=== PATIENT | female | born 1960 | race Caucasian/White ===

== ENCOUNTER 2022-12-14 06:12 | Inpatient (IN) ==
--- NOTE | 2022-11-30 14:06 | Anesthesiology Consultation ---
Date of Service November 30, 2022 Assessment & Plan (1) Encounter for pre-operative examination: Chart Review Chart Review: Acceptable Risk for Surgery and Patient NOT seen in Pre Admission Testing -Will leave to anesthesiologist discretion DOS if PRP needed DOS (not done preoperatively) -COVID screening: Per PAT nursing assessment on 11/10/22. No known COVID-19 positive contacts or current COVID-19 related symptoms. Travel screen negative. Patient vaccinated for Covid. At surgeon discretion if preop Covid testing being done. History Surgery Operation Date: 12/14/22 07:45 Proposed Procedures p L4-S1 Decompression and Fusion, Spinal Cord Monitoring - Fidel Small, Height/Weight Height: 5 ft 1 in Weight: 89.358 kg Allergies Allergy/AdvReac Type Severity Reaction Status Date / Time chlorhexidine Allergy Intermediate BLISTERS Verified 11/10/22 15:25 Medications Home Medications Medication Instructions Recorded Confirmed Last Taken Multivitamin Pack 1 dose PO QAM 11/10/22 11/10/22 Unknown ascorbic acid (vitamin C) 500 mg 500 mg PO DAILY 11/10/22 11/10/22 Unknown tablet (Vitamin C) trazodone 50 mg tablet 50 mg PO HS PRN Sleep 11/10/22 11/10/22 Unknown Past Medical History Medical History Degenerative disc disease History of COVID-19 04/2022>RESOLVED History of kidney stones NO SURGERY REQUIRED Hx of diverticulitis of colon Spinal stenosis Past Family History Family History Other No family history of adverse response to anesthesia Past Surgical History Surgical History History of bowel resection LOW ANTERIOR D/T DIVERTICULITIS History of cholecystectomy History of colonoscopy History of open reduction and internal fixation (ORIF) procedure RT WRIST History of partial hysterectomy Post-operative nausea and vomiting [place] teeth removed Social History Smoking Status: Never smoker Hx Alcohol Use: Yes alcohol intake frequency: holidays/special occasions only substance use type: does not use Testing Laboratory Results 11/18/22= WBC: 5.8 H/H: 13.9/43.1 PLATELETS: 235 PT: 9.6 PTT: 29 INR: 0.96 UA: Negative URINE CULTURE: No growth Electrocardiogram Date: 11/18/22 Findings: + NSR @ (79bpm ) Normal EKG per confirming provider Chest X-Ray Date: 11/18/22 Findings: + NAD
[~2022-12-14 06:12] MED LIST: ACETAMINOPHEN 500 MG TAB PO SCH; CeleBREX 200 MG CAP PO SCH; GABAPENTIN 600 MG DOSE PO SCH; LR 15ML/HR IV SCH; ceFAZolin 2000MG 2,000 MG/15 ML SYR IV SCH
[2022-12-14] MEDS ORDERED: HYDROmorphone INJ 2 MG/ML SYR/VIAL ONE (06:40)
[2022-12-14] MEDS ORDERED: MIDAZOLAM HCL 1 MG/ML 2ML VIAL ONE (06:40)
[2022-12-14 07:22] LABS: BUN Creatinine Ratio 18.2 (10-20); Creatinine Clr Calc Pharmacy 78.1 ml/min; Est GFR (African American) 96.6 ml/min; Est GFR (Non-African American) 83.3 ml/min; Potassium 3.5 mmol/L (3.5-5.1)
[2022-12-14] MEDS ORDERED: BUPIVACAINE/EPINEPHRINE 0.25% 1:200,000 30 ML VIAL ONE (07:37)
[2022-12-14] MEDS ORDERED: ceFAZolin 330 MG/ML 1 GM VIAL ONE (07:37)
--- NOTE | 2022-12-14 07:38 | History & Physical Bridge Note ---
Date of Service December 14, 2022 History & Physical Bridge Note I have examined the patient, reviewed the History & Physical and in the interval since the performance of the History & Physical I have noted the following changes of clinical significance: no changes noted
--- NOTE | 2022-12-14 07:39 | History & Physical Report ---
Date of Service December 14, 2022 Assessment & Plan (1) Neurogenic claudication due to lumbar spinal stenosis: Plan: L4-S1 decompression and fusion History of Present Illness Chief Complaint: Back and leg pain Primary Care Provider: Luis Bermeo DO This is a 62-year-old female who presents for persistent back and leg pain after failing conservative course of nonoperative care is here for surgical invention. Allergies Allergy/AdvReac Type Severity Reaction Status Date / Time chlorhexidine Allergy Intermediate BLISTERS Verified 12/14/22 06:40 morphine AdvReac Intermediate Vomiting Verified 12/14/22 06:40 Home Medications Medication Instructions Recorded Confirmed Type Multivitamin Pack 1 dose PO QAM 11/10/22 12/14/22 History ascorbic acid (vitamin C) 500 mg 500 mg PO DAILY 11/10/22 12/14/22 History tablet (Vitamin C) trazodone 50 mg tablet 50 mg PO HS PRN Sleep 11/10/22 12/14/22 History Past Med/Surg History Medical History Degenerative disc disease History of COVID-19 04/2022>RESOLVED History of kidney stones NO SURGERY REQUIRED Hx of diverticulitis of colon Spinal stenosis Surgical History History of bowel resection LOW ANTERIOR D/T DIVERTICULITIS History of cholecystectomy History of colonoscopy History of open reduction and internal fixation (ORIF) procedure RT WRIST History of partial hysterectomy Post-operative nausea and vomiting [place] teeth removed Family History Other No family history of adverse response to anesthesia Social History Smoking Status: Never smoker Second Hand Exposure: Yes ( A CHILD); Hx Alcohol Use: Yes Preferred Language: Kenyan Acid Adjuster Required: No Beliefs That Will Affect Care: None Current Living Situation: Spouse Feels Safe at Home: Yes Safety Concerns: Feels Safe At This Time Assistive Devices: Contacts and Glasses Physical Exam Physical Exam: Patient is alert and oriented Heart regular rhythm Lungs clear Results & Data Results & Data ([facility]) Vital Signs (Past 12 Hours) Vital Signs Temp Pulse Resp BP Pulse Ox O2 Del Method 12/14/22 06:35 36.6 C 74 20 142/78 H 98 Room Air
[2022-12-14] MEDS ORDERED: PROMETHAZINE HCL 6.25 MG in SODIUM CHLORIDE 0.9% 50 ML IV PRN (07:46)
[2022-12-14] MEDS ORDERED: ePHEDrine sulfate 50 MG/ML AMP IV PRN (07:46)
[2022-12-14] MEDS ORDERED: ATROPINE SULFATE 0.1 MG/ML 10ML SYR IV PRN (07:46)
[2022-12-14] MEDS ORDERED: ONDANSETRON INJ 2 MG/ML 2 ML VIAL IV PRN ×2 (07:46→11:54)
[2022-12-14] MEDS ORDERED: HYDROmorphone INJ 2 MG/ML SYR/VIAL IV PRN (07:46)
[2022-12-14] MEDS ORDERED: PROPOFOL IV EMULSION 10 MG/ML 20 ML VIAL IV ONE (08:15)
[2022-12-14] MEDS ORDERED: ROCURONIUM BROMIDE 10 MG/ML 5 ML VIAL IV ONE (08:15)
[2022-12-14] MEDS ORDERED: ONDANSETRON INJ 2 MG/ML 2 ML VIAL ONE (08:15)
[2022-12-14] MEDS ORDERED: DEXAMETHASONE SOD INJ 4 MG/ML VIAL ONE (08:15)
[2022-12-14] MEDS ORDERED: LIDOCAINE 2% MPF LOCAL 5 ML VIAL INFIL ONE (08:15)
[2022-12-14] MEDS ORDERED: GLYCOPYRROLATE 0.2 MG/ML VIAL ONE (08:15)
[2022-12-14] MEDS ORDERED: NEOSTIGMINE METHYLSULFATE 1 MG/ML 10ML VIAL ONE (08:15)
[2022-12-14] MEDS ORDERED: ePHEDrine sulfate 50 MG/ML SYR ONE (08:36)
[2022-12-14] MEDS ORDERED: FLOSEAL HEMOSTATIC MATRIX 10ML TOP ONE (09:38)
--- NOTE | 2022-12-14 09:48 | Operative Report ---
Post Operative Report Pre & Post Diagnosis Operation Date: 12/14/22 07:45 Pre-Op Diagnosis: Lumbar Spinal Stenosis with Neurogenic Claudication L4-S1 Spondylolisthesis L4-L5 Post-Op Diagnosis: Same I identified the patient and participated in the time-out.: Yes Procedure Operation Date: 12/14/22 07:45 Actual Procedures #1 lumbar decompression bilaterally facetectomies and foraminotomies L3-L4, L4- L5 and L5-S1. #2 posterior spinal fusion L4-L5 L5-S1. #3 placement posterior instrumentation L4-L5 L5-S1. #4 interbody fusion L4-L5 L5-S1. #5 placement of Spira 14 x 26 mm at L4-5 and 12 x 26 mm at L5-S1. #6 placement locally harvested morselized autograft in the posterior gutters. #7 placement of I factor model V toss in the interbody space and posterior lateral gutters. Surgeon Fidel Small, DO [employer] Buffer Remy Anderson Estimated Blood Loss 200 Findings See Below Patient is 5 foot 1 weighing over 89 kg with a BMI in excess of 37. Patient's body habitus did contribute to significant technical difficulty required deepest retractors and longer instruments in order to perform her procedure. This at least 50% increased operative time. Specimens None Indications This is a 62-year-old female who presents above-mentioned diagnosis after failing course of nonoperative care she is here for surgical invention. Description of Procedure Patient was met with identified informed consent obtained. Patient was then taken to the operative suite underwent a patient placed in the prone position on a Alli table top Leon frame. All bony prominences well-padded eyes inspected to ensure no external pressure placed upon the. This point the lumbar spine was prepped and draped in the normal sterile fashion. Sharp dissection with the assistance of Bovie Cardizem down to and exposing the lamina and transverse processes of L4-L5 and sacral ala bilaterally. From a caudal to cephalad fashion complete laminectomy of L5 L4 partial laminectomy of the 3 was performed including bilateral medial facetectomies and foraminotomies addressing severe spinal stenosis. Pedicle screws were then placed in L4-L5 and S1 levels bilaterally with assistance of fluoroscopy and appropriately sized sam placed. By way of a transforaminal approach on the left P discectomy of L5-S1 was performed endplates curetted to subcortically bone and a 12 x 26 mm spiral cage filled with I factor tapped in position. Then proceeded to L4-L5 and again by way of a transforaminal approach on the left complete discectomy performed endplates curetted to subcortically bone and a 14 x 26 mm spiral cage L5 position. Rods then locked in final position bilaterally. The transverse processes of L4-L5 and sacral ala burred to subcortical bleeding bone. I factor amount of detox and locally harvested morselized autograft was placed in the posterior gutters. 15 round SUKH drain inserted. The incision was then closed with 1 Vicryl the fascia 2-0 Vicryl subcutaneously and 4 Monocryl for final skin closure. Steri-Strips dressings placed. Patient waken taken to PACU stable condition. Please note spinal cord monitoring visualized at the procedure no changes noted. Lastly Remy Anderson was present at the entire surgery involved the patient positioning complex portion of the surgery and final skin closure. I attest to the content of the Intraoperative Record and any orders documented therein. Any exceptions are noted below.
[2022-12-14] MEDS: fentaNYL citrate 100 MCG/2 ML VIAL IV PRN ×2 (10:29→10:46)
[2022-12-14] MEDS: LACTATED RINGER'S 1,000 ML IV SCH ×2 (11:45→19:31)
[2022-12-14] MEDS ORDERED: NALOXONE HCL 0.4 MG/1 ML VIAL/CARP IV PRN (11:54)
[2022-12-14] MEDS ORDERED: ACETAMINOPHEN 1,000 MG/100 ML VIAL IV PRN (11:54)
[2022-12-14] MEDS ORDERED: HYDROmorphone INJ 1 MG/ML SYRINGE IV PRN (11:54)
[2022-12-14] MEDS ORDERED: ALUMINUM/MAGNESIUM SUSP 30 ML UDC PO PRN (11:54)
[2022-12-14] MEDS ORDERED: SOD PHOSPHATE/SOD BIPHOSPHATE ENEMA 132 ML BTL PR PRN (11:54)
[2022-12-14] MEDS ORDERED: traZODone HCL 50 MG TAB PO PRN (11:54)
[2022-12-14] MEDS ORDERED: diphenhydrAMINE Capsule 25 MG CAP PO PRN (11:54)
[2022-12-14] MEDS ORDERED: PROMETHAZINE HCL 12.5 MG in SODIUM CHLORIDE 0.9% 50 ML IV PRN (11:54)
[2022-12-14] MEDS ORDERED: ONDANSETRON 4 MG OD TAB PO PRN (11:54)
[2022-12-14] MEDS ORDERED: ACETAMINOPHEN 500 MG TAB PO PRN (11:54)
[2022-12-14] MEDS ORDERED: HYDROmorphone INJ 0.5 MG/0.5 ML SYR IV PRN (11:54)
[2022-12-14] MEDS ORDERED: traMADol HCL 50 MG TABLET PO PRN (11:54)
[2022-12-14] MEDS ORDERED: METOCLOPRAMIDE HCL INJ 5 MG/ML 2 ML VIAL IV PRN (11:54)
[2022-12-14] MEDS ORDERED: DO NOT ADMINISTER PNEUMOCOCCAL VACCINE PRN (11:54)
[2022-12-14] MEDS ORDERED: MAGNESIUM HYDROXIDE SUSP 30 ML UDC PO PRN (11:54)
[2022-12-14] MEDS ORDERED: hydrOXYzine HCl 25 MG TAB PO PRN (11:54)
[2022-12-14] MEDS ORDERED: LORazepam 0.5 MG TAB PO PRN (11:54)
[2022-12-14] MEDS ORDERED: DO NOT ADMINISTER FLU VACCINE PRN (11:54)
[2022-12-14] MEDS ORDERED: LORazepam 2 MG/1 ML VIAL IV PRN (11:54)
[2022-12-14] MEDS ORDERED: FAMOTIDINE 20 MG TAB PO PRN (11:54)
[2022-12-14] MEDS ORDERED: bisacodyL 10 MG SUPP PR PRN (11:54)
--- NOTE | 2022-12-14 12:08 | Hospitalist Consultation ---
Date of Consultation December 14, 2022 Assessment & Plan (1) Neurogenic claudication due to lumbar spinal stenosis: - POD #0. EBL 200cc. No complications. 1 SUKH drain. - Pain/ABX/IVF/diet/drain management/transfusion needs/activity per primary team - Rescue Narcan ordered for over sedation PRN - VTE prophylaxis per primary service- SCDs in place - CBC and BMP in AM. - Baseline renal function: Cr 0.77 12/14 - Baseline Hgb: 13.9 11/18 (2) Insomnia: - Continue home trazodone prn. Plan - Admitted to med/surg by primary team. - Continue home meds: vitamin C, multivitamin, trazodone prn. - Full Code. Thank you for involving us in the care of Mariana Meyer. Please do not hesitate to call with questions or concerns. At this time medicine service will sign off. Supervising Physician Co-Signing Physician Notes I personally saw and examined the patient. I verified all james points and agree with Radha Mon PA-C with the following exceptions and/or additions: 62-year-old female POD#0 lumbar decompression and posterior spinal fusion. No acute concerns or questions from the patient. O/E Numbness resolved on right medial leg and over knee. A&Ox3. HS1+2, RRR, no murmurs, Chest CTAB, Abdo SNT, serosanguineous fluid in drain. Dressing C/D/I. A/P No change to above. The medicine she takes is as needed trazodone which she can continue. Thank you for the consult. No chronic or acute medical needs identified requiring further medical input. We will sign off at this time but [facility] hospitalist to chart review tomorrow and look at AM labs. Please contact [facility] hospitalist english composition instructor for any questions or concerns. History of Present Illness Reason for Consultation: post op medical mangement Requesting Physician: Fidel Small DO Attending Physician: Fidel Small DO History of Present Illness Mariana Lopes is a 62-year-old female with past medical history of spinal stenosis and degenerative disc disease who was admitted today, 12/14 for L4-S1 decompression fusion with Dr. Small after failing conservative measures. Hospitalist group was consulted for post-operative medication management. Today, she is POD#0 and feels well. She is resting comfortably in bed without any pain. No numbness, tingling, weakness. Denies fever/chills, weakness, chest pain, palpitations, shortness of breath, cough, orthopnea, abdominal pain, nausea, vomiting. Allergies Allergy/AdvReac Type Severity Reaction Status Date / Time chlorhexidine Allergy Intermediate BLISTERS Verified 12/14/22 06:40 morphine AdvReac Intermediate Vomiting Verified 12/14/22 06:40 Home Medications Medication Instructions Recorded Confirmed Type Multivitamin Pack 1 dose PO QAM 11/10/22 12/14/22 History ascorbic acid (vitamin C) 500 mg 500 mg PO DAILY 11/10/22 12/14/22 History tablet (Vitamin C) trazodone 50 mg tablet 50 mg PO HS PRN Sleep 11/10/22 12/14/22 History oxycodone 5 mg tablet 5 mg PO Q6H PRN pain, severe #30 12/14/22 Rx tabs tramadol 50 mg tablet 50 mg PO Q6H PRN pain, moderate 12/14/22 Rx #30 tabs Patient History Medical History Degenerative disc disease History of COVID-19 04/2022>RESOLVED History of kidney stones NO SURGERY REQUIRED Hx of diverticulitis of colon Spinal stenosis Surgical History History of bowel resection LOW ANTERIOR D/T DIVERTICULITIS History of cholecystectomy History of colonoscopy History of open reduction and internal fixation (ORIF) procedure RT WRIST History of partial hysterectomy Post-operative nausea and vomiting [place] teeth removed Family History Other No family history of adverse response to anesthesia Social History Smoking Status: Never smoker Second Hand Exposure: Yes ( A CHILD); Hx Alcohol Use: Yes Preferred Language: Mauritian Pharmacy Buyer Required: No Beliefs That Will Affect Care: None Current Living Situation: Spouse Feels Safe at Home: Yes Safety Concerns: Feels Safe At This Time Assistive Devices: Contacts and Glasses Review of Systems Review of Systems: Constitutional: No fever/chills, weakness, fatigue, myalgias, anorexia, night sweats Eyes: No diplopia, no worsening or blurred vision ENT: normal hearing, no trouble swallowing Respiratory: No cough, sputum, dyspnea at rest or on exertion Cardiovascular: No chest pain, tightness or palpitations Abdomen: No pain, nausea, vomiting, diarrhea or constipation : Denies dysuria, hematuria, increased urgency/frequency, urinary retention Musculoskeletal: No joint pain, calf pain, swelling Neurologic: No weakness, numbness/tingling, or balance problems Psychiatric: No anxiety or depression Skin: No rash or itch Physical Exam Physical Exam: General: awake, alert, no apparent distress Head: Normocephalic, atraumatic ENT: PERRL, EOMI, no pharyngeal exudate, mucous membranes moist Chest: Clear to auscultation, on room air, no adventitious breath sounds Cardiac: Regular rate and rhythm, no murmur, no JVD, normal peripheral pulses, good capillary refill Abdominal: NABS x 4 quadrants, soft, nontender to palpation, no rebound, guarding or tenderness Extremities: Normal inspection, no peripheral edema or erythema, calfs nonten libia to palpation Psych: Normal mood and affect Neuro: AAO x 3, strength intact bilaterally and rated 5/5, no motor deficits, speech is clear, no peripheral sensory deficits Skin: no rash or erythema Results & Data Results & Data ([facility]) Vital Signs (Past 12 Hours) Vital Signs Temp Pulse Resp BP BP Pulse Ox O2 Del Method 12/14/22 11:35 81 12 136/69 94 Nasal Cannula 12/14/22 11:05 68 15 129/76 97 Nasal Cannula 12/14/22 10:55 36.3 C L 68 12 132/71 94 Nasal Cannula 12/14/22 10:45 92 H 15 118/83 96 Nasal Cannula 12/14/22 10:35 88 12 121/72 95 Oxymask 12/14/22 10:25 81 12 130/74 98 Oxymask 12/14/22 10:15 68 14 132/75 98 Oxymask 12/14/22 10:09 36.3 C L 87 17 130/66 97 Oxymask 12/14/22 06:35 36.6 C 74 20 142/78 H 98 Room Air O2 Flow Rate 12/14/22 11:35 2 12/14/22 11:05 2 12/14/22 10:55 2 12/14/22 10:45 2 12/14/22 10:35 2 12/14/22 10:25 5 12/14/22 10:15 9 12/14/22 10:09 9 12/14/22 06:35 PG Care Time/CCT Total # of Minutes Spent Total Time Spent with Patient: Total time spent is greater than 50% in coordination of care (as documented) at patient's floor/unit and/or counseling patient: Coding Level of Care Code INP/OBS CONSULT LVL 2, 35 MIN Diagnoses Neurogenic claudication due to lumbar spinal stenosis M48.062 Insomnia G47.00
--- NOTE | 2022-12-14 13:43 | Fluoroscopy Report ---
FL lumbar spine 2-3V CLINICAL HISTORY: L4-L5 DECOMPRESSION AND FUSION TECHNIQUE: 2 views were obtained with the C-arm in the OR with the above procedure. Total fluoroscopy time was 25.5 seconds. Radiation dose was 24.50 mGy. Comparison: None available at the time of this dictation. FINDINGS/IMPRESSION: Intraoperative images were obtained of L4-S1 decompression and fusion. Please correlate with intraoperative fluoroscopy and operative report. ACT 112: Negative or not required by law. Electronically signed by: Des Pearson M.D. 12/14/2022 1:41 PM
[2022-12-14] MEDS: oxyCODONE HCL IR 5 MG TAB (IMMEDIATE RELEASE) PO PRN ×2 (14:11→22:14)
--- NOTE | 2022-12-14 15:27 | Anesthesiology Progress Note ---
Date of Service December 14, 2022 Anesthesia Post Procedure Vital Signs Vital Signs: Temp Pulse Pulse Resp BP BP Pulse Ox 12/14/22 14:45 79 18 90/54 L 94 12/14/22 13:45 36.6 C 95 H 18 99/66 L 94 12/14/22 11:45 12/14/22 11:45 36.6 C 74 18 118/72 94 12/14/22 12:44 36.4 C L 92 H 18 97/66 L 95 12/14/22 12:19 36.4 C L 88 88 14 106/72 94 12/14/22 11:35 81 12 136/69 94 12/14/22 11:05 68 15 129/76 97 12/14/22 10:55 36.3 C L 68 12 132/71 94 12/14/22 10:45 92 H 15 118/83 96 12/14/22 10:35 88 12 121/72 95 12/14/22 10:25 81 12 130/74 98 12/14/22 10:15 68 14 132/75 98 12/14/22 10:09 36.3 C L 87 17 130/66 97 12/14/22 06:35 36.6 C 74 20 142/78 H 98 O2 Del Method O2 Flow Rate 12/14/22 14:45 Room Air 12/14/22 13:45 Nasal Cannula 12/14/22 11:45 Nasal Cannula 2 12/14/22 11:45 Nasal Cannula 2 12/14/22 12:44 Room Air 12/14/22 12:19 Room Air 12/14/22 11:35 Nasal Cannula 2 12/14/22 11:05 Nasal Cannula 2 12/14/22 10:55 Nasal Cannula 2 12/14/22 10:45 Nasal Cannula 2 12/14/22 10:35 Oxymask 2 12/14/22 10:25 Oxymask 5 12/14/22 10:15 Oxymask 9 12/14/22 10:09 Oxymask 9 12/14/22 06:35 Room Air Pain Intensity Lower Back: Pain Intensity: 4 Transfer of Care Handoff Completed per policy Notes Mental Status: alert / awake / arousable Patient Amnestic to Procedure: Yes Nausea / Vomiting: adequately controlled Pain: adequately controlled Airway Patency, RR, SpO2: stable & adequate BP & HR: stable & adequate Hydration State: stable & adequate Anesthetic Complications: no major complications apparent
[2022-12-14] MEDS: ceFAZolin 2000MG 2,000 MG/15 ML SYR IV SCH ×2 (17:20→23:38)
[2022-12-14] MEDS: DOCUSATE SODIUM/SENNA 50/8.6MG TAB PO SCH (20:04)
[2022-12-15] MEDS: POLYETHYLENE (MIRALAX) 17 GM PACK PO SCH ×4 (04:48→23:23)
[2022-12-15 07:24] LABS: Basophils # (auto) 0.02 K/uL (0-0.2); Basophils % (auto) 0.2 %; Hematocrit (blood only) 31.5 % (34.1-44.9); Hemoglobin 10.3 g/dl (12.0-16.0); Immature Granulocytes # (auto) 0.03 K/uL (0.00-0.02); Immature Granulocytes % (auto) 0.3 %; Lymphocytes # (auto) 1.82 K/uL (1.2-3.4); Lymphocytes % (auto) 19.6 %; Mean Corpuscular Hemoglobin 29.3 pg (25.0-34.0); Mean Corpuscular Hgb Conc 32.7 g/dL (32.0-36.0); Mean Corpuscular Volume 89.5 fL (80.0-100.0); Mean Platelet Volume 10.7 fL (9.4-12.3); Monocytes % (auto) 7.5 %; Neutrophils # (auto) 6.73 K/uL (1.4-6.5); Neutrophils % (auto) 72.4 %; Platelet Count 185 K/uL (130-400); RDW Coefficient of Variation 13.6 % (11.5-14.5); RDW Standard Deviation 44.5 fL (36.4-46.3); Red Blood Count 3.52 M/uL (3.93-5.22)
[2022-12-15 07:45] LABS: BUN Creatinine Ratio 14.9 (10-20); Calcium 8.4 mg/dl (8.5-10.1); Creatinine Clr Calc Pharmacy 89.8 ml/min; Est GFR (Non-African American) 94.9 ml/min; Potassium 3.9 mmol/L (3.5-5.1)
[2022-12-15] MEDS: dexAMETHasone 6 MG in SYRINGE 0 ML IV SCH (09:07)
[2022-12-15] MEDS: oxyCODONE HCL IR 5 MG TAB (IMMEDIATE RELEASE) PO PRN ×3 (11:24→23:30)
--- NOTE | 2022-12-15 12:38 | Orthopedic Progress Note ---
Date of Service December 15, 2022 Assessment & Plan (1) Neurogenic claudication due to lumbar spinal stenosis: Plan: This time continue physical therapy monitor SUKH operatively discharge home tomorrow. Admission and Anticipated Discharge Date Admission Date: December 14, 2022 Subjective Back pain controlled leg pain improved Physical Exam Physical Exam: Patient is up and ambulating is good strength testing. Results & Data ([facility]) Vital Signs (Past 12 Hours) Vital Signs Temp Pulse Resp BP BP Pulse Ox O2 Del Method 12/15/22 11:20 37 C 77 20 109/74 95 Room Air 12/15/22 07:56 36.9 C 81 20 94/58 L 94 Room Air 12/15/22 04:26 36.8 C 90 18 98/60 L 98 Room Air
[2022-12-15] MEDS: DOCUSATE SODIUM/SENNA 50/8.6MG TAB PO SCH (20:46)
[2022-12-16] MEDS: oxyCODONE HCL IR 5 MG TAB (IMMEDIATE RELEASE) PO PRN ×2 (06:00→12:33)
[2022-12-16] MEDS: POLYETHYLENE (MIRALAX) 17 GM PACK PO SCH ×2 (06:01→12:34)
[2022-12-16] MEDS: dexAMETHasone 6 MG in SYRINGE 0 ML IV SCH (08:12)
--- NOTE | 2022-12-16 08:26 | Discharge Summary ---
Date of Service December 16, 2022 Admission HPI Per Admitting Provider This is a 62-year-old female who presents for persistent back and leg pain after failing conservative course of nonoperative care is here for surgical invention. Admission Exam (Per Admitting) Constitutional WD/WN, vitals as above Eyes normal visual suh by confrontation ENMT external ear and nose normal, oropharynx normal Neck normal visual inspection Respiratory normal respiratory effort Cardiovascular Extremities: normal capillary refill Gastrointestinal (Abdomen) Inspection/Auscultation: abdomen normal to inspection Musculoskeletal Spine: + pain with thoraco-lumbar ROM and + lumbar spinal tenderness Skin no rashes, warm and dry Neurologic normal touch/pain/proprioception and moves all extremities Psychiatric A+Ox3, euthymic affect Eye Contact: good eye contact Discharge Data Consultations 12/14/22 12:05 Consult Hospitalist Routine Procedures Performed Operation Date: 12/14/22 07:45 Actual Procedures p L4-S1 Decompression and Fusion, with Interbody Fusion L4-S1, Application of IFactor and Vitoss Bone Graft and Spinal Cord Monitoring(Not Applicable) - Fidel Small DO Hospital Course (1) Neurogenic claudication due to lumbar spinal stenosis: Patient is being discharged home on postop day 2 status post L4-S1 decompression instrumented fusion. She had an uneventful hospital course. Lab values have been stable. Pain is controlled. She is passing flatus and had a small bowel movement on postoperative day 2. SUKH drain output is diminishing appropriately. She is progressing daily and physical therapy. Discharge Instructions ACTIVITY RECOMMENDATIONS: SELF CARE INSTRUCTIONS AFTER THORACIC/LUMBAR FUSIONS 1. You may walk to your tolerance. It is good exercise for your legs and back. Expect some back and intermittent leg aches and pains. 2. You may perform "counter-top" level activities (make a sandwich, angel with a project, etc.). 3. No bending or lifting of more than 10 pounds or back twisting of any nature (roll like a log when turning in bed). 4. You may ride in a car for 20-30 minutes at a time. No driving until after your first visit with your doctor. 5. Frequent changes of position and restricting sitting to 30 minutes at a time will help limit the amount of back spasms and stiffness you may experience. 6. You may discontinue the use of ambulatory aids (cane, crutches, etc.) once your strength and confidence allow. 7. You may pairer substandard the shower and let water strike your incision when you arrive home at least once daily. Do not take a tub bath, sit in a hot tub or go into a swimming pool until after your first recheck in the office. SPECIAL CARE INSTRUCTIONS: VERY IMPORTANT TO READ AND REVIEW A. Your surgical incision has been closed with a cosmetic suture under the skin that will dissolve in about 6 weeks. In 14 days, you can use a pair of clean scissors and cut the suture that is left outside of the skin at the ends of your incision. 1. The small skin tapes can be removed 7 days after surgery if they have not fallen off by that point. 2. You may keep the wound open to air as much as possible to promote healing after post-op day number 5 unless told otherwise by your doctor. 3. If you think the wound looks like it is becoming infected (redness or worsening drainage) and/or you are experiencing fever, chill or worsening back pain and muscle spasms, contact the office so that we may evaluate you as soon as possible. B. Complications are uncommon, but please contact us if you have any signs or symptoms of: 1. wound infection (fever higher than 102.5 degrees F, redness, separation of wound, drainage, or increasing pain from the incision) 2. blood clots in legs (pain, swelling, redness and warmth in legs) 3. urinary tract infection (fever higher than 102.5 degrees F, burning upon urination or increased frequency of urination) 4. nerve problems (inability to walk on your toes or heels, numbness, loss of bowel or bladder control) 5. any other symptoms that concern you C. Please call the office at if you have any concerns or questions about your operation or recovery. D. No smoking! Smoking drastically decreases the chance of a solid fusion. E. Do not take any anti-inflammatory medications (Indocin, Advil, Motrin, Aspirin, Naprosyn, etc.) as these may inhibit the chance of a solid fusion. Tylenol is okay to take for pain. MANAGING PAIN AFTER SPINAL SURGERY 1. Narcotic medication is intended for short-term use and will be provided for surgical pain. Surgical pain usually lasts for a period of 4-6 weeks. Narcotic medication includes Percocet, Vicodin, Darvocet, Tylenol #3 or Lortab. 2. Longer-term pain is more appropriately treated with non-narcotic medication such as Tylenol ES. 3. Muscle spasm is not appropriately treated with narcotics. Muscle relaxers such as Soma, Flexeril or Skelaxin can be used along with Tylenol ES. 4. Remember that we all live with some "aches and pains". This is not unusual or uncommon after an injury or as we get older. a. Back pain is expected and may include muscle spasms for 4 to 6 weeks after surgery. The pain should gradually improve. If the pain worsens for no apparent reason, please contact the office. b. Intermittent leg pain may also be experienced and should not be concerned about unless it worsens for no apparent reason. If so, please contact the office. 5. We will provide appropriate medication within the normal guidelines of their prescribed use. We will also be very cautious and aware of potential abuse and extended duration of patients' medication needs. a. Pain medications are for your comfort and to assist with sleep and rest so that the tissue can heal. They are not provided in order to return to normal activity and should not be used through the day. To do so or worsening pain at night can result from ongoing tissue damage and development of tolerance to the prescribed medicine. 6. Please allow 2-3 days to process refills. Prescriptions will not be mailed but must be picked up at the office. FOLLOW UP VISIT: Keep your scheduled follow-up appointment. Any questions, please call the office at .
== END 2022-12-16 14:14 | disposition home or self-care (01) | DRG 455 ==
LOC: ASU 06:12 → 3W 09:51